=== PATIENT | female | born 1985 | race Caucasian/White ===

== ENCOUNTER 2016-12-22 11:55 | Emergency (ER) | payer BC, MEDICAID ==
[~2016-12-22] VITALS: Ht 152.4 cm; Wt 67.0 kg
[2016-12-22 11:57] VITALS: BP 142/86
[2016-12-22] MEDS ORDERED: DIPH,PERTUSS(ACELL),TET VAC/PF 0.5 ML IM-VACC ONE ×2 (13:00→13:26)
== END 2016-12-22 14:23 | disposition home or self-care (01) ==
LOC: ED 14:18
DX: S61.212A Laceration without foreign body of right middle finger without damage to nail, initial encounter (principal); W26.8XXA Contact with other sharp object(s), not elsewhere classified, initial encounter; Y93.89 Activity, other specified; Y92.098 Other place in other non-institutional residence as the place of occurrence of the external cause; Y99.8 Other external cause status
CPT/HCPCS: 12001; 90471; 90715; 99283

== ENCOUNTER 2017-01-26 03:11 | Emergency (ER) | payer MEDICAID ==
[~2017-01-26] VITALS: Ht 152.4 cm; Wt 64.3 kg
[2017-01-26 03:11] VITALS: BP 123/83
== END 2017-01-26 04:19 | disposition home or self-care (01) ==
LOC: ED 03:25
DX: H61.21 Impacted cerumen, right ear (principal)
CPT/HCPCS: 99281

== ENCOUNTER 2017-10-21 00:39 | Emergency (ER) | payer MEDICAID ==
[~2017-10-21] VITALS: Ht 152.4 cm; Wt 60.9 kg
[2017-10-21 01:12] LABS: BASOPHILS # (AUTO) 0.02 x10^3/uL (0-0.1); BASOPHILS % (AUTO) 0 % (0-1); EOSINOPHILS # (AUTO) 0.09 x10^3/uL (0-0.4); EOSINOPHILS % (AUTO) 1 % (1-7); LYMPHOCYTES # (AUTO) 1.58 x10^3/uL (1-3.4); LYMPHOCYTES % (AUTO) 23 % (22-44); MD NO; MEAN CORPUSCULAR HEMOGLOBIN 34.1 pg (27.0-34.8); MEAN CORPUSCULAR HGB CONC 34.9 g/dL (32.4-35.8); MEAN CORPUSCULAR VOLUME 97.9 fL (80-100); MEAN PLATELET VOLUME 7.1 fL (7.4-10.4); MONOCYTES # (AUTO) 0.51 x10^3/uL (0.2-0.8); MONOCYTES % (AUTO) 7 % (2-9); NEUTROPHILS # (AUTO) 4.76 x10^3/uL (1.8-6.8); NEUTROPHILS % (AUTO) 68 % (42-75); PLATELET COUNT 251 x10^3/uL (130-400); RED BLOOD COUNT 3.92 x10^6/uL (3.82-5.3); RED CELL DISTRIBUTION WIDTH 13.7 % (9.6-15.2)
[2017-10-21 01:24] LABS: ALANINE AMINOTRANSFERASE 17 U/L (12-78); ANION GAP 6 mmol/L (5-15); CHLORIDE 110 mmol/L (98-107)
[2017-10-21 01:41] LABS: ALKALINE PHOSPHATASE 51 U/L (45-117); BILIRUBIN,TOTAL 0.3 mg/dL (0.2-1.0); TOTAL PROTEIN 6.7 g/dL (6.4-8.2)
[2017-10-21 02:05] LABS: CULTURE INDICATED? NO; MICROSCOPIC INDICATED
[2017-10-21 02:12] VITALS: BP 100/67
[2017-10-21 02:13] LABS: AMPHETAMINE SCREEN, URINE Positive (Negative); BARBITURATE SCREEN, URINE Negative (Negative); BENZODIAZEPINE SCREEN, URINE Negative (Negative); CANNABINOID SCREEN, URINE Negative (Negative); COCAINE SCREEN, URINE Negative (Negative); METHADONE SCREEN, URINE Negative (Negative); OPIATE SCREEN, URINE Negative (Negative)
== END 2017-10-21 03:22 | disposition home or self-care (01) ==
LOC: ED 03:11
DX: O26.891 Other specified pregnancy related conditions, first trimester (principal); F15.129 Other stimulant abuse with intoxication, unspecified; Z3A.11 11 weeks gestation of pregnancy
CPT/HCPCS: 36415; 76801; 80053; 80307; 81001; 84702; 85025; 99285

== ENCOUNTER 2019-05-08 17:43 | Outpatient (CLI) | payer MEDICAID, OTHER ==
[~2019-05-08] VITALS: Ht 152.4 cm; Wt 81.4 kg
[2019-05-08 17:57] VITALS: BP 134/70
[2019-05-08 18:06] LABS: MICROSCOPIC NOT IND
[2019-05-08 18:18] LABS: AMPHETAMINE SCREEN, URINE Negative (Negative); BARBITURATE SCREEN, URINE Negative (Negative); BENZODIAZEPINE SCREEN, URINE Negative (Negative); CANNABINOID SCREEN, URINE Negative (Negative); COCAINE SCREEN, URINE Negative (Negative); METHADONE SCREEN, URINE Negative (Negative); OPIATE SCREEN, URINE Negative (Negative)
[2019-05-08] MEDS ORDERED: PREN1TAB60 PO (18:30)
== END 2019-05-08 19:25 | disposition home or self-care (01) ==
LOC: LDOP 17:43
PROVIDERS: ATTEND Obstetrics & Gynecology
DX: O26.893 Other specified pregnancy related conditions, third trimester (principal); R10.9 Unspecified abdominal pain; Z3A.00 Weeks of gestation of pregnancy not specified
CPT/HCPCS: 59025; 80307; 81003; 99211; G0463

== ENCOUNTER → 2019-05-11 | Outpatient (CLI) | payer MEDICAID ==
[~2019-05-11] VITALS: Ht 152.4 cm; Wt 80.9 kg
[~2019-05-11] MED LIST: PREN1TAB60 PO
[2019-05-11 15:15] VITALS: BP 106/73
[2019-05-11 15:35] LABS: MICROSCOPIC NOT IND
[2019-05-11 15:52] LABS: AMPHETAMINE SCREEN, URINE Negative (Negative); BARBITURATE SCREEN, URINE Negative (Negative); BENZODIAZEPINE SCREEN, URINE Negative (Negative); CANNABINOID SCREEN, URINE Negative (Negative); COCAINE SCREEN, URINE Negative (Negative); METHADONE SCREEN, URINE Negative (Negative); OPIATE SCREEN, URINE Negative (Negative)
== END | disposition home or self-care (01) ==
LOC: LDOP 14:54
PROVIDERS: ATTEND Obstetrics & Gynecology
DX: O36.8130 Decreased fetal movements, third trimester, not applicable or unspecified (principal); Z3A.38 38 weeks gestation of pregnancy
CPT/HCPCS: 59025; 80307; 81003; 87086; 99211; G0463

== ENCOUNTER 2019-05-18 05:06 | Inpatient (IN) | payer MEDICAID ==
[~2019-05-18] VITALS: Ht 152.4 cm; Wt 82.2 kg
[2019-05-18] MEDS ORDERED: OXYTOCIN 30U/ 0.9% NaCL 500ML 500 ML IV ONE (05:09)
[2019-05-18] MEDS ORDERED: D5%-LACTATED RINGERS 1,000 ML IV SCH (05:09)
[2019-05-18 05:19] VITALS: BP 104/80
[2019-05-18] MEDS ORDERED: FENTANYL PF 100 MCG/2ML IV PRN (05:30)
[2019-05-18] MEDS ORDERED: FENTANYL PF 100 MCG/2ML IVPush PRN (05:30)
[2019-05-18] MEDS ORDERED: CALCIUM CARBONATE 500 MG TAB.CHEW PO PRN (05:30)
[2019-05-18] MEDS ORDERED: TERBUTALINE 1 MG/ML, 1ML IVPush PRN (05:30)
[2019-05-18] MEDS ORDERED: TERBUTALINE 1 MG/ML, 1ML SQ PRN (05:30)
[2019-05-18] MEDS ORDERED: ONDANSETRON 2MG/ML, 2ML IVPush PRN (05:30)
[2019-05-18 05:36] LABS: AMPHETAMINE SCREEN, URINE Negative (Negative); BARBITURATE SCREEN, URINE Negative (Negative); BENZODIAZEPINE SCREEN, URINE Negative (Negative); CANNABINOID SCREEN, URINE Negative (Negative); COCAINE SCREEN, URINE Negative (Negative); METHADONE SCREEN, URINE Negative (Negative); OPIATE SCREEN, URINE Negative (Negative)
[2019-05-18] MEDS: LACTATED RINGERS 1,000 ML IV SCH ×2 (05:37→10:07)
[2019-05-18] MEDS ORDERED: OXYTOCIN 30U/ 0.9% NaCL 500ML 500 ML ONE ×2 (05:51→15:55)
[2019-05-18] MEDS ORDERED: NEWBORN KIT ONE (05:51)
[2019-05-18 06:21] LABS: BASOPHILS # (AUTO) 0.03 x10^3/uL (0-0.1); BASOPHILS % (AUTO) 0 % (0-1); EOSINOPHILS # (AUTO) 0.11 x10^3/uL (0-0.4); EOSINOPHILS % (AUTO) 2 % (1-7); LYMPHOCYTES # (AUTO) 1.83 x10^3/uL (1-3.4); LYMPHOCYTES % (AUTO) 24 % (22-44); MD NO; MEAN CORPUSCULAR HEMOGLOBIN 34.3 pg (27.0-34.8); MEAN CORPUSCULAR VOLUME 100.7 fL (80-100); MONOCYTES # (AUTO) 0.41 x10^3/uL (0.2-0.8); MONOCYTES % (AUTO) 5 % (2-9); NEUTROPHILS % (AUTO) 69 % (42-75); PLATELET COUNT 210 x10^3/uL (130-400); RED BLOOD COUNT 4.25 x10^6/uL (3.82-5.3); RED CELL DISTRIBUTION WIDTH 14.8 % (9.6-15.2)
[2019-05-18] MEDS ORDERED: OXYTOCIN 30U/ 0.9% NaCL 500ML 500 ML IV PRN (06:25)
[2019-05-18] MEDS ORDERED: FENTANYL/BUPIV./NS/PF 250 ML EPIDCONT SCH ×2 (09:38→10:55)
[2019-05-18] MEDS ORDERED: FENTANYL PF 500 MCG, BUPIVACAINE/PF 0.5%, 30ML 62.5 ML in SODIUM CHLORIDE 0.9% 177.5 ML EPIDCONT SCH (10:00)
[2019-05-18] MEDS ORDERED: LACTATED RINGERS 1,000 ML IV SCH (11:00)
[2019-05-18] MEDS ORDERED: EPHEDRINE 50 MG/ML, 1ML IVPush PRN (11:00)
[2019-05-18] MEDS ORDERED: NALOXONE 0.4 MG/ML, 1ML IVPush PRN (11:00)
[2019-05-18] MEDS ORDERED: LACTATED RINGERS 1,000 ML IVBOLUS PRN (11:00)
[2019-05-18] MEDS ORDERED: NICOTINE 7 MG/24 HR PATCH.TD24 TD SCH (13:00)
[2019-05-18] MEDS ORDERED: METHYLERGONOVINE 0.2 MG/ML IM PRN (15:30)
[2019-05-18] MEDS ORDERED: CEFAZOLIN PMX 2GM/50ML 50 ML IVPB ONE (15:30)
[2019-05-18] MEDS ORDERED: DOCUSATE 100 MG CAPSULE PO PRN (15:30)
[2019-05-18] MEDS ORDERED: ACETAMINOPHEN 325 MG TABLET PO PRN (15:30)
[2019-05-18] MEDS ORDERED: MISOPROSTOL 200 MCG TABLET PR PRN (15:30)
[2019-05-18] MEDS ORDERED: SIMETHICONE 80 MG CHEW TAB PO PRN (15:30)
[2019-05-18] MEDS ORDERED: CARBOPROST TROMETHAMINE 250 MCG/ML, 1ML IM PRN (15:30)
[2019-05-18] MEDS ORDERED: TRANEXAMIC ACID 100 MG/ML, 10ML IV ONE (15:30)
[2019-05-18] MEDS ORDERED: ONDANSETRON 2MG/ML, 2ML IV PRN (15:30)
[2019-05-18] MEDS ORDERED: IBUPROFEN 600 MG TABLET ONE (15:54)
[2019-05-18] MEDS: IBUPROFEN 600 MG TABLET PO PRN ×2 (15:58→23:06)
[2019-05-18] MEDS: OXYTOCIN 30U/ 0.9% NaCL 500ML 500 ML IV SCH (15:59)
[2019-05-18] MEDS ORDERED: TRANEXAMIC ACID 1,000 MG in SODIUM CHLORIDE 0.9% 100 ML IVPB ONE (16:00)
[2019-05-18 17:53] VITALS: BP 114/79
[2019-05-18 19:30] VITALS: BP 114/71
[2019-05-18] MEDS: NICOTINE 21 MG/24 HR PATCH.TD24 TD SCH (23:07)
[2019-05-18 23:30] VITALS: BP 113/76
[2019-05-19 00:50] LABS: BASOPHILS # (AUTO) 0.02 x10^3/uL (0-0.1); BASOPHILS % (AUTO) 0 % (0-1); EOSINOPHILS # (AUTO) 0.15 x10^3/uL (0-0.4); EOSINOPHILS % (AUTO) 2 % (1-7); LYMPHOCYTES # (AUTO) 2.15 x10^3/uL (1-3.4); LYMPHOCYTES % (AUTO) 21 % (22-44); MD NO; MEAN CORPUSCULAR HEMOGLOBIN 33.8 pg (27.0-34.8); MEAN CORPUSCULAR HGB CONC 33.5 g/dL (32.4-35.8); MEAN CORPUSCULAR VOLUME 100.9 fL (80-100); MEAN PLATELET VOLUME 8.3 fL (7.4-10.4); MONOCYTES # (AUTO) 0.69 x10^3/uL (0.2-0.8); MONOCYTES % (AUTO) 7 % (2-9); NEUTROPHILS # (AUTO) 7.21 x10^3/uL (1.8-6.8); NEUTROPHILS % (AUTO) 71 % (42-75); PLATELET COUNT 168 x10^3/uL (130-400); RED BLOOD COUNT 3.93 x10^6/uL (3.82-5.3); RED CELL DISTRIBUTION WIDTH 14.9 % (9.6-15.2)
[2019-05-19] MEDS: OXYTOCIN 30U/ 0.9% NaCL 500ML 500 ML IV SCH (01:29)
[2019-05-19 04:15] VITALS: BP 104/69
[2019-05-19 07:30] VITALS: BP 123/67
[2019-05-19] MEDS: PRENATAL VIT/IRON/FA 1 EACH TABLET PO SCH (09:00)
[2019-05-19] MEDS ORDERED: NICOTINE 21 MG/24 HR PATCH.TD24 TD SCH (09:00)
[2019-05-19] MEDS: IBUPROFEN 600 MG TABLET PO PRN (09:24)
[2019-05-19 12:40] VITALS: BP 117/82
[2019-05-19 20:45] VITALS: BP 116/85
[2019-05-19] MEDS: NICOTINE 21 MG/24 HR PATCH.TD24 TD SCH (23:08)
[2019-05-20 08:00] VITALS: BP 119/83
[2019-05-20] MEDS: PRENATAL VIT/IRON/FA 1 EACH TABLET PO SCH (09:00)
== END 2019-05-20 15:10 | disposition home or self-care (01) | DRG 807 ==
LOC: LDIP 05:06 → 2NW 17:25
PROVIDERS: ADMIT Obstetrics & Gynecology; ATTEND Obstetrics & Gynecology
PROC: 10E0XZZ Delivery of Products of Conception, External Approach (ICD-10-PCS; principal; 2019-05-18)
PROC: 10907ZC Drainage of Amniotic Fluid, Therapeutic from Products of Conception, Via Natural or Artificial Opening (ICD-10-PCS; 2019-05-18)
PROC: 3E033VJ Introduction of Other Hormone into Peripheral Vein, Percutaneous Approach (ICD-10-PCS; 2019-05-18)
PROC: 3E0R3BZ Introduction of Anesthetic Agent into Spinal Canal, Percutaneous Approach (ICD-10-PCS; 2019-05-18)
PROC: 00HU33Z Insertion of Infusion Device into Spinal Canal, Percutaneous Approach (ICD-10-PCS; 2019-05-18)
DX: O75.89 Other specified complications of labor and delivery (principal); Z37.0 Single live birth; Z3A.39 39 weeks gestation of pregnancy; Z82.49 Family history of ischemic heart disease and other diseases of the circulatory system
CPT/HCPCS: 36415; 80307; 85025; 86592; 86850; 86900; G0378; J2590; J7120; J7121